=== PATIENT | female | born 1955 | race Caucasian/White ===

== ENCOUNTER → 2024-09-14 | Outpatient (CLI) | payer MEDICARE, MEDICAID, SELFPAY ==
--- NOTE | 2024-09-14 09:31 | XR_ITS ---
Examination: MRI abdomen with intravenous contrast. MRI abdomen without intravenous contrast. Date and time of exam: September 14, 2024 1007 hours INDICATIONS: Pancreatic mass on CT lumbar spine examination July 05, 2024 Technique: Multiple axial, sagittal and coronal sections of the abdomen obtained. Transverse images, TR 6020, TE 107. T1 weighted transverse images, TR 582, TE 9.5. T2-weighted sagittal images, TR 4000, TE 105. T2-weighted sagittal images, TR 4000, TE 5. Coronal images, TR 4210, TE 107. Axial and coronal images are obtained post 20 cc intravenous injection, gadolinium. Findings: No focal liver lesions or intrahepatic biliary tract dilatation Gallbladder not visualized No common hepatic or common bile duct stones Extensive septated cystic change in the pancreatic head and body, at least 6.8 x 4.0 cm x 5.2 cm Postcontrast images do not demonstrate obvious enhancement of the cystic masses No hydronephrosis No ascites Spleen is not enlarged No retroperitoneal lymphadenopathy IMPRESSION: Extensive septated cystic change in the pancreatic head and body, at least 6.8 x 4.0 x 5.2 cm, without abnormal enhancement on the postcontrast images, however hypocellular cystic pancreatic tumor is not excluded Consider CT-guided fine-needle aspiration of the cystic masses in the pancreas
== END | disposition home or self-care (01) ==
LOC: SMRI 09-16 07:44
PROVIDERS: PCP Physician Assistant Medical; Referring Provider Physician Assistant Medical; Visit Provider Physician Assistant Medical
DX: K86.89 Other specified diseases of pancreas (principal)
CPT/HCPCS: 74183; A9579

== ENCOUNTER 2024-11-01 07:27 | Outpatient (CLI) | payer MEDICARE, MEDICAID, SELFPAY ==
[2024-10-28 10:40] VITALS: BMI 35.8
[2024-10-29 16:13] LABS: Basophils # (Auto) 0.1 Thou/mm3 (0.0-0.2); Basophils % (Auto) 1 % (0-2.5); Eosinophils # (Auto) 0.1 Thou/mm3 (0.0-0.5); Eosinophils % (Auto) 1 % (0-10); Hematocrit 43.6 % (36.0-46.0); Hemoglobin 14.7 g/dL (12.0-16.0); Immature Granulocytes % (Auto) 0 % (0-0); Immature Granulocytes Auto 0.02 Thou/mm3 (0.00-0.00); Lymphocytes % (Auto) 21 % (10-50); Mean Corpuscular HGB Conc 33.7 g/dl (31.0-37.0); Mean Corpuscular Hemoglobin 31.3 pg (25.0-35.0); Mean Corpuscular Volume 93 fL (80-100); Monocytes # (Auto) 0.9 Thou/mm3 (0.0-0.8); Monocytes % (Auto) 10 % (0-12); Neutrophils # (Auto) 6.3 Thou/mm3 (1.8-7.7); Neutrophils % (Auto) 67 % (37-80); Nucleated Red Blood Cell % 0 /100 WBC (0); Platelet Count 278 Thou/mm3 (140-440); RDW Standard Deviation 44.6 fL (36.4-46.3); Red Blood Count 4.69 Miln/mm3 (4.00-5.20); White Blood Count 9.4 Thou/mm3 (3.6-11.0)
[2024-10-29 16:38] LABS: Blood Urea Nitrogen 17 mg/dL (9-23); Creatinine (Component) 0.8 mg/dL (0.6-1.3); Estimated Creatinine Clearance 77.2 mL/min (>60); eGFR > 60 See Note
[2024-10-29 18:45] LABS: Partial Thromboplastin Time 24.9 Seconds (22.0-36.0); Prothrombin Time 11.4 Seconds (9.0-12.2)
[2024-11-01] VITALS (9 sets, daily range): BP systolic 113–147; BP diastolic 75–93; PULSE 64–73; RESP 16–18; TEMP 36.4–36.9; O2SAT 91–96
--- NOTE | 2024-11-01 08:30 | XR_ITS ---
Examination: CT-guided percutaneous fine-needle aspiration pancreatic mass CT abdomen without intravenous contrast Date and time of procedure: November 01, 2024 0929 hours INDICATIONS: Abnormal CT examination and MR abdomen study September 14, 2024 with septated cystic mass in the pancreatic head and body Informed consent provided. A timeout was completed verifying correct patient, procedure, site and positioning. Technique: Axial 3 mm sections were obtained for localization of the pancreatic abnormality Appropriate area is marked. The patient's site was prepped and draped in sterile fashion Maximal sterile barrier technique utilized, including hand hygiene Local anesthesia was obtained with 1% lidocaine. Low dose protocols were performed. One or more of the following dose reduction techniques were used; automated exposure control, adjustment of the mA and/or KV according to patient size, use of iterative reconstruction technique. Utilizing CT fluoroscopic guidance multiple fine needle aspirations obtained of the masslike area in the pancreatic bed Patient appears in stable condition during this procedure. At completion of the procedure, the patient is in satisfactory condition. Estimated blood loss 2 cc Complete pathology report to follow. Impression: Successful CT-guided fine-needle aspiration of mass in the pancreatic bed
[2024-11-01] MEDS: fentaNYL CIT INJ 50 mCg/ML AMP 2ML 75 MCG IVP (09:42)
[2024-11-01] MEDS: SODIUM CHLORIDE 0.9% 500 ML 500 ML 20 ML IV (10:05)
== END 2024-11-01 11:05 | disposition home or self-care (01) ==
PROVIDERS: Radiology Diagnostic Radiology; PCP Physician Assistant Medical; Referring Provider Physician Assistant Medical; Visit Provider Physician Assistant Medical
DX: K86.2 Cyst of pancreas (principal); Z01.812 Encounter for preprocedural laboratory examination
CPT/HCPCS: 10009; 36415; 82565; 84520; 85025; 85610; 85730; J3010; J7040

== ENCOUNTER 2025-03-11 13:00 | Day surgery (SDC) | payer MEDICARE, MEDICAID, SELFPAY ==
--- NOTE | 2025-03-10 12:38 | EKG_ITS ---
[facility] Test Date: 2025-03-10 Pat Name: CHA COLORADO Department: Room: - Gender: Female Agency Sales Representative: JUSTINRobert : 1955 Requested By: Orion Boss Order Number: [id number] Reading MD: Orion Boss Measurements Intervals [place] Rate: 67 P: 44 [place]: 144 QRS: -5 QRSD: 103 T: 52 QT: 460 QTc: 489 Interpretive Statements SINUS RHYTHM LOW QRS VOLTAGE IN PRECORDIAL LEADS [QRS DEFLECTION < 1.0 mV IN CHEST LEADS] INCOMPLETE RIGHT BUNDLE BRANCH BLOCK [90+ ms QRS DURATION, TERMINAL R IN V1/V2, 40+ ms S IN I/aVL/V4/V5/V6] PROLONGED QT INTERVAL Compared to ECG 01/21/2022 10:51:15 Low QRS voltage now present Incomplete right bundle-branch block now present Prolonged QT interval now present /store/S0/[id number]/[id number].pdf
[2025-03-10 14:15] LABS: INR 1.1 (0.9-1.3); Partial Thromboplastin Time 26.3 Seconds (22.0-36.0); Prothrombin Time 11.9 Seconds (9.0-12.2)
[2025-03-10 14:21] LABS: Alanine Aminotransferase 11 U/L (10-49); Albumin, Serum 4.4 gm/dL (3.4-4.8); Albumin/Globulin Ratio 1.8 (1.2-2.2); Alkaline Phosphatase 82 U/L (46-116); Anion Gap 8 (7-16); BUN/Creatinine Ratio 15 Ratio (12-20); Bilirubin,Total 0.8 mg/dL (0.3-1.2); Blood Urea Nitrogen 17 mg/dL (9-23); Calcium 9.4 mg/dL (8.3-10.6); Calcium (Corrected) 9.4 mg/dL (8.5-10.1); Carbon Dioxide 26.8 mMol/L (20.0-31.0); Chloride 108 mMol/L (98-107); Creatinine (Component) 1.1 mg/dL (0.6-1.3); Globulin 2.5 gm/dL (2.3-3.5); Glucose 98 mg/dL (74-106); Osmolality,Calculated 286 (275-295); Potassium 4.4 mMol/L (3.4-5.1); Sodium 143 mMol/L (136-145); Total Protein 6.9 gm/dL (5.7-8.2); eGFR 54 See Note
[2025-03-10 14:32] LABS: HCG,Qualitative Serum Negative
[2025-03-10 15:43] VITALS: BMI 34.5
[2025-03-11] VITALS (7 sets, daily range): BP systolic 131–186; BP diastolic 84–105; PULSE 74–81; RESP 13–20; TEMP 36.1–36.8; O2SAT 94–98; BMI 34.5
[2025-03-11] MEDS: RINGERS LACTATED 1000 ML 1,000 ML 20 ML IV (13:52)
[2025-03-11] MEDS: bisacodyL 10 MG SUPP PR (15:30)
--- NOTE | 2025-03-11 15:30 | SUR.PHASEII ---
pt is unable to pass flatus after multiple attempts of respositioning. suppository given.
== END 2025-03-11 15:55 | disposition home or self-care (01) ==
PROVIDERS: PCP Nurse Practitioner Family; Referring Provider Specialist; Visit Provider Specialist
PROC: 0DBE8ZX Excision of Large Intestine, Via Natural or Artificial Opening Endoscopic, Diagnostic (ICD-10-PCS; CPT 45380; principal; 2025-03-11 13:45)
DX: K62.1 Rectal polyp (principal); Z01.810 Encounter for preprocedural cardiovascular examination; K57.30 Diverticulosis of large intestine without perforation or abscess without bleeding
CPT/HCPCS: 45380; 36415; 80053; 84703; 85610; 85730; 93005; J7120; A9270

== ENCOUNTER → 2025-05-05 | Outpatient (BNVA) | payer MEDICARE, MEDICAID, SELFPAY | END | disposition home or self-care (01) | PROVIDERS: PCP Physician Assistant Medical; Referring Provider Physician Assistant Medical; Visit Provider Urology | DX: N39.0 Urinary tract infection, site not specified (principal); Z87.440 Personal history of urinary (tract) infections; N81.10 Cystocele, unspecified; F17.210 Nicotine dependence, cigarettes, uncomplicated; I10 Essential (primary) hypertension; E78.00 Pure hypercholesterolemia, unspecified; J44.9 Chronic obstructive pulmonary disease, unspecified; K21.9 Gastro-esophageal reflux disease without esophagitis; E66.9 Obesity, unspecified; Z68.36 Body mass index [BMI] 36.0-36.9, adult | CPT/HCPCS: 51701; 81003; 99213; G0463 ==

== ENCOUNTER → 2025-05-24 | Outpatient (CLI) | payer MEDICARE, MEDICAID, SELFPAY ==
--- NOTE | 2025-05-24 | XR_ITS ---
Examination: CT chest, without intravenous contrast. Sagittal and coronal 2-D reconstructions. Exam date and time: May 24, 2025, 11:44 AM, comparison July 05, 2024 INDICATIONS: Noncalcified pulmonary nodules on CT chest July 05, 2024, smoking history 60 years CTDI:vol (mGy) 15.1 DLP: (mGycm) 538 Technique: Multiple 3.0 mm axial sections of the chest to been obtained. Bone and lung density settings are obtained. Sagittal and coronal 2-D reconstructions have been obtained. Low dose protocols were performed. One or more of the following dose reduction techniques were used; automated exposure control, adjustment of the mA and/or KV according to patient size, use of iterative reconstruction technique. Findings: No thoracic aortic aneurysm dilatation Pulmonary artery segments are not enlarged. Mild enlargement cardiac contour. Bilateral subcentimeter pulmonary nodules again noted New 3 mm pulmonary nodule left lower lobe No pneumonia or pulmonary edema The osseous structures are intact. IMPRESSION: New 3 mm pulmonary nodule left lower lobe, suggest continued 6 month follow-up CT chest without contrast
== END | disposition home or self-care (01) ==
PROVIDERS: PCP Physician Assistant Medical; Referring Provider Physician Assistant Medical; Visit Provider Physician Assistant Medical
DX: R91.1 Solitary pulmonary nodule (principal)
CPT/HCPCS: 71250

== ENCOUNTER → 2025-07-13 | Outpatient (CLI) | payer MEDICARE, MEDICAID, SELFPAY ==
--- NOTE | 2025-07-13 14:00 | XR_ITS ---
Examination: Bone densitometry Date and time of exam: July 13, 2025, 1342 hours INDICATIONS: Menopause age 45 levothyroxine 20 years smoking history personal history osteopenia Technique: Lumbar spine and hip total bone mineralization values of an calculated. Peak reference and age match control results have been displayed. Findings: Lumbar spine total bone mineralization is 0.920 gm/cm2. This is 1.2 standard deviations below peak reference. This is 1.1 standard deviations above age-matched controls. Hip total bone mineralization is 0.757 gm/cm2 This is 1.5 standard deviations below peak reference. This is 0.1 standard deviations above age-matched controls Impression: There is osteopenia based on lumbar spine measurements. There is osteopenia based on hip measurements Lumbar mineralization is increased 3.9% compared with November 15, 2021 Hip mineralization is increased 1.1% compared with November 15, 2021
== END | disposition home or self-care (01) ==
LOC: CDIM 13:11
PROVIDERS: PCP Physician Assistant Medical; Referring Provider Physician Assistant Medical; Visit Provider Physician Assistant Medical
DX: M85.89 Other specified disorders of bone density and structure, multiple sites (principal)
CPT/HCPCS: 77080

== ENCOUNTER → 2025-08-02 | Outpatient (CLI) | payer MEDICARE, MEDICAID, SELFPAY ==
--- NOTE | 2025-08-02 | XR_ITS ---
Examination: Diagnostic digital mammography, unilateral, left Computer aided detection 3-D breast Tomosynthesis, unilateral Date and time of exam: 08/02/2025, 3:59 p.m. Comparisons: 05/02/2025 Indications: Further evaluation of abnormality seen on prior screening exam. Technique: Nonmagnified MLO, CC views of the left breast have been obtained, reconstructed from 3-D Tomosynthesis images. R2 computer aided detection program utilized for evaluation of suspicious masses and/or abnormal calcifications. 3-D Tomosynthesis images obtained. Technologist: Findings: There are scattered areas of fibroglandular density. 4 mm oval circumscribed mass persists in the upper inner quadrant. Finding finding corresponds to the benign simple cyst seen at 10:00 on today's ultrasound exam. Otherwise, no evidence of abnormal masses or suspicious calcifications. Impression: BI-RADS category 2: Benign findings Recommend 1 year follow-up mammogram
--- NOTE | 2025-08-02 15:00 | XR_ITS ---
Examination: Breast ultrasound, unilateral, left complete Date and time of exam: August 02, 2025, 1517 hours INDICATIONS: Mammogram May 02, 2025 5 mm focal asymmetry inferior left breast Technique: Real-time ervni scale ultrasonographic imaging performed left breast including all 4 quadrants as well as nipple retroareolar and axillary region. Findings: 2:00 nodule lobular margins 7 x 5 mm 10:00 cyst 3 x 3 mm IMPRESSION: BI-RADS Category 3: Probably benign findings Recommend 1 additional 6-month left breast sonogram follow-up to document stability of 2:00 nodule described above
== END | disposition home or self-care (01) ==
PROVIDERS: PCP Physician Assistant Medical; Referring Provider Physician Assistant Medical; Visit Provider Physician Assistant Medical
DX: R92.322 Mammographic fibroglandular density, left breast (principal); N63.21 Unspecified lump in the left breast, upper outer quadrant
CPT/HCPCS: 76641; 77061; 77065; G0279

== ENCOUNTER → 2025-08-05 | Outpatient (BNVA) | payer MEDICARE, MEDICAID, SELFPAY ==
--- NOTE | 2025-08-05 16:12 | ESPR_ITS ---
RE: CHA COLORADO : 1955 DATE OF SERVICE: 08/05/2025 CHIEF COMPLAINT: 1. Recurrent urinary tract infection. 2. Morbid obesity. 3. Smoking. 4. Urethral stenosis. 5. Grade 3 cystocele. HISTORY OF PRESENT ILLNESS: This is a 69-year-old female. She is 6, para 5, 1 miscarriage, no hysterectomy. This patient has frequency of urination 2 times at night, 1-2 times during the day. She has no history of gross hematuria, dysuria, or urinary tract infection. The patient had UTI, urethral stenosis, had difficult catheterization. The patient was recommended cystoscopic examination. Procedure and complications were discussed with patient in detail. Today, I checked her urine is infected. I obtained a catheter specimen. Urine is still infected. The patient is on Macrobid 100 mg p.o. daily. She has no fever, chills, or gross hematuria. Past medical history, family history, review of the system, personal history, please refer to patient history form dated 08/05/2025 is in HPI and EMR. PHYSICAL EXAMINATION: General: Condition is satisfactory. Orientation x3. HEENT: Normocephalic, atraumatic. Eyes: No anemia or jaundice. Neck: Supple. Trachea is central. Thyroid is not enlarged. Extremities: Revealed no edema, cyanosis, or clubbing. Neck: Supple. Trachea is central. Thyroid is not enlarged. Chest: Symmetrical. Heart: Regular rate and rhythm. Abdomen: Very obese, no masses, liver, spleen, kidney not palpable, no CVA tenderness. VARIOUS LABS: BUN is 17, creatinine is 1.1, GFR is 54. PLAN: 1. Urine for culture sensitivity. 2. Reschedule cystoscopic examination once her urinary tract infection is cleared. 3. Follow up with Dr. Gracia for chronic kidney disease. 4. Follow up appointment with me in urology office. All above issues were discussed with patient in great detail. Question were answered to her satisfaction. She verbalized understanding. DT: 12:16:46 TT: 16:12:00 Ref: [id number] - TID: [id number]
== END | disposition home or self-care (01) ==
PROVIDERS: Visit Provider Urology
DX: N39.0 Urinary tract infection, site not specified (principal); Z53.8 Procedure and treatment not carried out for other reasons; E66.01 Morbid (severe) obesity due to excess calories; Z68.36 Body mass index [BMI] 36.0-36.9, adult; N81.10 Cystocele, unspecified; F17.210 Nicotine dependence, cigarettes, uncomplicated; I10 Essential (primary) hypertension; Z71.6 Tobacco abuse counseling
CPT/HCPCS: 51702; 81003; 96372; 99213; A4217; A4649; C1894; J1580; A9270; G0463

== ENCOUNTER → 2025-08-05 | Outpatient (CLI) | payer MEDICARE, MEDICAID, SELFPAY | END | disposition home or self-care (01) | LOC: SLDO 14:10 | PROVIDERS: Referring Provider Urology; Visit Provider Urology | DX: N39.0 Urinary tract infection, site not specified (principal) | CPT/HCPCS: 87086 ==